=== PATIENT | female | born 1955 | race Caucasian/White ===

== ENCOUNTER → 2016-06-02 | Outpatient (CLI) | payer OTHER | LOC: WI 07:42 | PROVIDERS: ATTEND Surgery | DX: R10.11 Right upper quadrant pain (principal); K76.0 Fatty (change of) liver, not elsewhere classified | CPT/HCPCS: 76705 ==

== ENCOUNTER → 2017-04-05 | Outpatient (CLI) | payer OTHER ==
--- NOTE | 2017-04-05 14:21 | RADIOLOGY REPORT (SQ) ---
EXAM DESCRIPTION: NM HIDA SCAN WITH CCK COMPLETED DATE/TIME: 04/05/2017 10:16 am REASON FOR STUDY: RU QUADRANT PAIN, ABN LEFT R10.11 RIGHT UPPER QUADRANT PAIN R94.5 ABNORMAL RESUL TS OF LIVER FUNCTION STUDIES COMPARISON: Right upper quadrant ultrasound 06/02/2016 Outside right upper quadrant ultrasound 03/23/2017 RADIONUCLIDE AND DOSE: DOSAGE RADIONUCLIDE: 5.5 millicuries Tc99m Mebrofenin. DOSAGE CCK: 1.5 micrograms. DOSAGE MORPHINE: Not required. The route of agent administration: Intravenous TECHNIQUE: Serial imaging right upper quadrant up to 60 minutes following injection of radionuclide. CCK injected after gallbladder visualized. LIMITATIONS: None. FINDINGS: LIVER: Prompt homogeneous uptake throughout the liver which clears by 60 minutes. INTRAHEPATIC BILE DUCTS: Identified at 12 minutes COMMON BILE DUCT: Identified at 12 minutes GALLBLADDER: Normal visualization. Calculated ejection fraction of 47%. Normal range is greater th an 35%. PHYSICAL RESPONSE: Patients presenting complaint was reproduced. OTHER: No other significant finding. IMPRESSION: NO SCINTIGRAPHIC EVIDENCE OF CYSTIC DUCT OR COMMON DUCT OBSTRUCTION. NORMAL GALLBLADDER EJECTION FRACTION IV CCK REPRODUCED THE PATIENT'S SYMPTOMS TECHNICAL DOCUMENTATION: JOB ID: [id number] [employer]- All Rights Reserved
== END ==
LOC: RAD 07:29
PROVIDERS: ATTEND Nurse Practitioner Primary Care
DX: R10.11 Right upper quadrant pain (principal); R94.5 Abnormal results of liver function studies
CPT/HCPCS: 78227; A9537; Q9969; J2805

== ENCOUNTER 2019-06-09 20:02 | Emergency (ER) | payer OTHER ==
[2019-06-09 20:11] VITALS: BP 138/103
--- NOTE | 2019-06-09 20:59 | ER Document Report ---
HPI - HPI Time Seen by Provider: 06/09/19 20:34 Pain Level: 4 Context: Patient is a 64-year-old female who presents the emergency department with a chief complaint of left shoulder pain. She was roller skating and ended up falling and hitting her left elbow on the floor. States that she is unable to move it. Patient hit her elbow and ended up having left shoulder pain. She took ibuprofen 800 mg at 2000 this evening. Denies any medical problems. Does not take any medications. - ROS Systems Reviewed and Negative: Yes All other systems reviewed and negative - RESPIRATORY Respiratory: DENIES: Trouble Breathing, Coughing - MUSCULOSKELETAL Musculoskeletal: REPORTS: Extremity pain - Left shoulder, left elbow - DERM Skin Color: Normal Skin Problems: None Past Medical History - Social History Smoking Status: Never Smoker Family History: Reviewed & Not Pertinent Patient has suicidal ideation: No Patient has homicidal ideation: No Vertical Provider Document - CONSTITUTIONAL Agree With Documented VS: Yes Exam Limitations: No Limitations General Appearance: No Apparent Distress - INFECTION CONTROL TRAVEL OUTSIDE OF THE [place] IN LAST 30 DAYS: No - HEENT HEENT: Atraumatic, Normocephalic, PERRLA - NECK Neck: Normal Inspection - RESPIRATORY Respiratory: No Respiratory Distress - CARDIOVASCULAR Cardiovascular: Regular Rate, Regular Rhythm Pulses: Normal: Radial - MUSCULOSKELETAL/EXTREMETIES Musculoskeletal/Extremeties: Tender - Left shoulder and left elbow. negative: FROM - Decreased range of motion due to pain - NEURO Level of Consciousness: Awake, Alert, Appropriate Motor/Sensory: No Motor Deficit, No Sensory Deficit - DERM Integumentary: Warm, Dry, Rash - Abrasion noted to left posterior elbow Course - Re-evaluation Re-evalutation: 06/09/19 21:55 Patient's shoulder x-ray and elbow x-ray are negative for any acute fractures. Patient will be sent home with Terrell to help with her pain. Advised her to take ibuprofen and Tylenol [id number] to help with her pain. Capillary refill less than 3 seconds. Radial pulses 2+. No vascular compromise noted. Patient will follow-up with her primary care provider. Sling will be provided. Follow-up precautions were given. Verbal discharge instructions were given to the patient. They verbalized understanding. They are stable for discharge. - Vital Signs Vital signs: Temp Pulse Resp BP Pulse Ox 97.7 F 71 18 138/103 H 99 06/09/19 20:09 06/09/19 20:09 06/09/19 20:09 06/09/19 20:09 06/09/19 20:09 Procedures - Immobilization Left Arm Immobilizer type: Sling Performed by: RN Post-Proc Neuro Vasc Exam: Normal, Unchanged from pre-exam Alignment checked and good: Yes Discharge - Discharge Clinical Impression: Fall Qualifiers: Encounter type: initial encounter Qualified Code(s): W19.XXXA - Unspecified fall, initial encounter Left shoulder pain Qualifiers: Chronicity: acute Qualified Code(s): M25.512 - Pain in left shoulder Condition: Stable Disposition: HOME, SELF-CARE Instructions: Sling as Treatment ([facility]) Additional Instructions: You were seen today in the emergency department for shoulder and arm pain after a fall. Your x-rays were normal. You are being placed in a sling to help with comfort. Continue to take ibuprofen 600 mg and acetaminophen 1000 mg every 6 hours for your pain. You are being sent home with Robaxin, a muscle relaxer. You can take this as needed. You can take 1 or 2 tablets twice a day as needed. Prescriptions: Methocarbamol [Robaxin 500 mg Tablet] 1,000 mg PO BID PRN #20 tablet PRN Reason: Forms: Return to Work Referrals: CIARRA DAVIS NP [Primary Care Provider] - Follow up in 3-5 days
--- NOTE | 2019-06-09 21:35 | RADIOLOGY REPORT (SQ) ---
LEFT SHOULDER RADIOGRAPHS: 06/09/2019 8:33 PM [employer]SULT[employer] TECHNIQUE: AP internal/external rotation, Y views of the left shoulder were obtained. COMPARISON: None available HISTORY: 64-year old patient with left shoulder pain, fall. FINDINGS: The visualized portions of the left hemithorax appear unremarkable. There may be some ostial lysis of the distal left clavicle. There are no findings to suggest an acute fracture of the left shoulder. The visualized portions of the left clavicle demonstrate no evidence of an acute fracture. The visualized soft tissues appear unremarkable. IMPRESSION: There are no findings to suggest an acute fracture of the left shoulder.
--- NOTE | 2019-06-09 21:47 | RADIOLOGY REPORT (SQ) ---
Left elbow four view on 06/09/2019 at 9:01 PM CLINICAL INDICATION: Left elbow pain after fall COMPARISON: None FINDINGS: There are no fractures. Visualized joints are well aligned. No definite joint effusion to suggest an occult fracture is noted. No bony abnormality is noted. IMPRESSION: No acute abnormality.
[2019-06-09] MEDS ORDERED: METHOCARBAMOL 750 MG TABLET PO ONE (21:54)
[2019-06-09] MEDS ORDERED: METHOCARBAMOL 500 MG TABLET PO ONE (21:58)
== END 2019-06-09 22:25 | disposition home or self-care (01) ==
LOC: ER 20:02
DX: M25.512 Pain in left shoulder (principal); M25.522 Pain in left elbow; W01.198A Fall on same level from slipping, tripping and stumbling with subsequent striking against other object, initial encounter; Z79.899 Other long term (current) drug therapy
CPT/HCPCS: 99283